=== PATIENT | male | born 1960 | race Caucasian/White ===

== ENCOUNTER 2021-04-12 09:57 | Day surgery (SDC) | payer OTHER ==
[~2021-04-12 09:57] MED LIST: Lactated Ringers 1,000 ML IV SCH
[2021-04-12] MEDS ORDERED: fentaNYL 100 MCG/2 ML SDV ONE (10:54)
[2021-04-12] MEDS ORDERED: Propofol 200 MG/20 ML SDV ONE ×2 (10:54→12:12)
[2021-04-12] MEDS ORDERED: Nalbuphine 10 MG/1 ML Vial IVPUSH ONE (12:30)
--- NOTE | 2021-04-13 08:18 | OR ---
DATE OF SURGERY: 04/12/2021. REFERRING PROVIDER: Dr. Albert Dee through the [facility] in [place]. PRE-OPERATIVE DIAGNOSES: Screening colonoscopy. This is the patient's first colonoscopy. He denies any symptoms nor any family history of colon cancer. He has done colon cancer screening with stool cards in the past. These have all been okay. He is not on any current blood thinners. POST-OPERATIVE DIAGNOSES: 1. Two polyps were removed. a. A 2 mm polyp at 110 cm, removed using cold forceps. b. A 10 mm polyp at 15 cm, removed using hot snare. 2. Normal-appearing terminal ileum. PROCEDURES: Colonoscopy with polypectomy x2 (one using cold forceps and one using hot snare). SURGEON: Naveen Joshua M.D. ANESTHESIA: Monitored anesthesia care. BOWEL PREP: Good. Sukhdev is a 61-year-old male, was brought to the endoscopy suite after discussing risks and benefits of the procedure. Informed consent was obtained for conscious sedation and colonoscopy with or without biopsy and/or polypectomy. We also discussed possibility of missed lesions. Pre-procedure exam was unremarkable. IV, oxygen, and monitors were placed. The patient was placed in the left lateral decubitus position. Sedation was administered and a digital rectal exam was performed which was unremarkable. Colonoscope was passed into the rectum and slowly advanced all the way to the cecum. Cecum was viewed and photographed. The ileocecal valve was intubated, and the terminal ileum was normal in appearance. The colonoscope was slowly withdrawn and the mucosa was closed observed in a direct circumferential manner. The ascending colon was remarkable for a 2 mm polyp at 110 cm, removed using cold forceps. The transverse colon was unremarkable. The descending colon was unremarkable. The sigmoid colon revealed a 10 mm polyp at 15 cm, removed using hot snare. Retroflexion was performed and rectal mucosa was unremarkable. Scope was removed. The patient tolerated the procedure well. The patient was monitored until that baseline status. Discharge instructions were reviewed and the patient was discharged in good condition. COMPLICATIONS: None. TOTAL TIME: 25 minutes. ESTIMATED BLOOD LOSS: Less than 1 mL. RECOMMENDATIONS/FOLLOW-UP: We will await the results of the path report to determine the ideal followup interval. I would like to kindly thank Dr. Albert Dee for this referral. DMB: 04/12/2021 14:04:13 MODL: 04/12/2021 20:43:37 /[id number]
== END 2021-04-12 14:10 | disposition home or self-care (01) ==
LOC: VM.SDS 09:57
PROVIDERS: ATTEND Family Medicine
DX: Z12.11 Encounter for screening for malignant neoplasm of colon (principal); D12.2 Benign neoplasm of ascending colon; D12.5 Benign neoplasm of sigmoid colon; E78.5 Hyperlipidemia, unspecified; G47.33 Obstructive sleep apnea (adult) (pediatric); N40.1 Benign prostatic hyperplasia with lower urinary tract symptoms; N13.8 Other obstructive and reflux uropathy; N52.9 Male erectile dysfunction, unspecified
CPT/HCPCS: 00812; J2704; J3010; J7120

== ENCOUNTER 2023-05-05 07:20 | Emergency (ER) | payer OTHER ==
[2023-05-05 07:46] LABS: BASOPHILS PERCENT AUTO 0.2 % (0.2-1.2); EOSINOPHILS ABSOLUTE AUTO 0.2 x10^3/uL (0.0-0.5); EOSINOPHILS PERCENT AUTO 2.3 % (0.0-4.0); HEMATOCRIT 51.2 % (40.0-52.0); HEMOGLOBIN 17.2 g/dL (14.0-18.0); IMMATURE GRAN ABSOLUTE AUTO 0.06 x10^3/uL (0.00-0.07); LYMPHOCYTES ABSOLUTE AUTO 1.7 x10^3/uL (1.0-4.8); LYMPHOCYTES PERCENT AUTO 25.6 % (25.0-50.0); MEAN CORPUSCULAR HEMOGLOBIN 32.2 pg (26.0-32.0); MEAN CORPUSCULAR HGB CONC 33.6 g/dL (32.0-36.0); MEAN CORPUSCULAR VOLUME 95.9 fL (78.0-93.0); MONOCYTES ABSOLUTE AUTO 1.1 x10^3/uL (0.0-0.8); MONOCYTES PERCENT AUTO 16.5 % (2.0-11.0); NEUTROPHILS ABSOLUTE AUTO 3.5 x10^3/uL (1.8-7.7); NEUTROPHILS PERCENT AUTO 54.5 % (50.0-80.0); PLATELET COUNT,PLT 218 x10^3/uL (130-400); RED BLOOD CELL COUNT 5.34 x10^6/uL (4.5-6.0); WHITE BLOOD CELL COUNT,WBC 6.5 x10^3/uL (4.0-10.0)
[2023-05-05 07:59] LABS: CALCIUM 9.1 mg/dL (8.5-10.1); CREATININE 1.3 mg/dL (0.70-1.30); EST CRCL DRUG DOSING (CG) 55.54 mL/min; POTASSIUM,K 4.6 mmol/L (3.5-5.1)
[2023-05-05 08:00] LABS: ANION GAP 15.6 mmol/L (5-15)
== END 2023-05-05 08:35 | disposition home or self-care (01) ==
LOC: VM.ED 07:20
DX: R19.7 Diarrhea, unspecified (principal); E78.00 Pure hypercholesterolemia, unspecified; Z88.8 Allergy status to other drugs, medicaments and biological substances; Z79.899 Other long term (current) drug therapy
CPT/HCPCS: 36415; 80048; 85025; 99284

== ENCOUNTER 2024-07-22 07:03 | Day surgery (SDC) | payer OTHER ==
[2024-07-22] MEDS: Lactated Ringers 1,000 ML IV SCH (08:57)
[2024-07-22] MEDS ORDERED: Propofol 200 MG/20 ML SDV ONE (09:03)
[2024-07-22] MEDS ORDERED: fentaNYL 100 MCG/2 ML SDV ONE (09:03)
[2024-07-23] MEDS ORDERED: Lactated Ringers 1,000 ML IV SCH (07:00)
== END 2024-07-22 11:05 | disposition home or self-care (01) ==
LOC: VM.SDS 07:03
PROVIDERS: ATTEND Family Medicine
DX: Z12.11 Encounter for screening for malignant neoplasm of colon (principal); Z86.0100 Personal history of colon polyps, unspecified; I11.0 Hypertensive heart disease with heart failure; I50.9 Heart failure, unspecified; I25.10 Atherosclerotic heart disease of native coronary artery without angina pectoris; Z79.899 Other long term (current) drug therapy
CPT/HCPCS: J2704; J3010; J7120

== ENCOUNTER 2024-11-25 13:43 | Emergency (ER) | payer OTHER ==
[2024-11-25] MEDS: Diphtheria,Pertussis(Acell),Tetanus Vaccine 0.5 ML Syringe IM ONE (14:25)
== END 2024-11-25 14:15 | disposition home or self-care (01) ==
LOC: VM.ED 13:43
DX: S41.131A Puncture wound without foreign body of right upper arm, initial encounter (principal); I50.9 Heart failure, unspecified; I25.10 Atherosclerotic heart disease of native coronary artery without angina pectoris; E78.00 Pure hypercholesterolemia, unspecified; M19.90 Unspecified osteoarthritis, unspecified site; Z23 Encounter for immunization; Z88.8 Allergy status to other drugs, medicaments and biological substances; Z79.899 Other long term (current) drug therapy; Z79.82 Long term (current) use of aspirin; Z79.51 Long term (current) use of inhaled steroids; Z79.02 Long term (current) use of antithrombotics/antiplatelets; Z79.84 Long term (current) use of oral hypoglycemic drugs; W22.8XXA Striking against or struck by other objects, initial encounter
CPT/HCPCS: 90471; 90715; 99283-25